=== PATIENT | male | born 1945 | race Caucasian/White ===

== ENCOUNTER 2017-12-19 15:00 | Outpatient (CLI) | payer MEDICARE, BC | END 2017-12-19 15:01 | disposition home or self-care (01) | LOC: BICRAD 15:00 | PROVIDERS: ATTEND Internal Medicine | DX: J45.909 Unspecified asthma, uncomplicated (principal); J32.9 Chronic sinusitis, unspecified; I70.0 Atherosclerosis of aorta | CPT/HCPCS: 70220; 71046 ==

== ENCOUNTER 2018-10-15 13:34 | Outpatient (CLI) | payer MEDICARE, BC ==
--- NOTE | 2018-10-15 16:10 | ULT ---
ABDOMEN ULTRASOUND: HISTORY: Pain. COMPARISON: None. TECHNIQUE: Utilizing a Multi-Hertz transducer, sonographic imaging of the abdomen is performed in the longitudin al and transverse planes. FINDINGS: The visualized aorta has a normal appearance. The head and proximal body of the pancreas has a jackie l echotexture. Suboptimal evaluation of the inferior vena cava. The hepatic parenchyma has a normal course and echotexture, which may be due to hepatic steatosis or hepatocellular disease. Limited evaluation for hepatic masses and intrahepatic biliary dilatation. The main portal vein is patent. Appropriate directional flow. No sonographic evidence of cholelithi asis. No gallbladder wall thickening or pericholecystic fluid. Negative Soto sign. Common bile duct diameter is 0.5 cm. Bilaterally, no hydronephrosis. The right kidney measures 5.4 x 5.4 x 11.2 cm. The left kidney carrie ures 10.7 x 5.7 x 5.5 cm. There are nonspecific echogenic foci in the left and right renal cortex. The spleen has normal echotexture with nonspecific echogenic foci. Maximum splenic dimension is 11 c m. IMPRESSION: 1. Echogenic foci in the kidneys, which may represent nonobstructing parenchymal calcifications. 2. No evidence of hydronephrosis. 3. No sonographic evidence of cholelithiasis or cholecystitis. 4. Possible hepatic steatosis versus hepatocellular disease. Further evaluation with abdomen CT, utilizing liver mass protocol, versus abdomen MRI, if clinically warranted. POS: [facility]
== END 2018-10-15 13:35 | disposition home or self-care (01) ==
LOC: BICULT 13:34
PROVIDERS: ATTEND Internal Medicine
DX: R10.9 Unspecified abdominal pain (principal)
CPT/HCPCS: 76700

== ENCOUNTER 2018-10-30 10:05 | Outpatient (CLI) | payer MEDICARE, BC ==
--- NOTE | 2018-10-30 10:24 | RAD ---
F2 views of the left hip INDICATION: Left hip pain FINDINGS: There is mixed lucency and sclerosis of the left femoral head suspicious for changes of ost eonecrosis. There is some flattening of the anterosuperior femoral head which may reflect some underl rich collapse. There is moderate degenerative arthrosis of the left hip. IMPRESSION: Mixed lucency and sclerosis of the superior left femoral head with abnormality of the lef t femoral head contour suspicious for osteonecrosis and subcortical collapse of the left femoral head . Follow-up MRI of the left hip may be helpful for additional evaluation. Moderate osteoarthrosis of the left hip.
== END 2018-10-30 10:06 | disposition home or self-care (01) ==
LOC: BICRAD 10:05
PROVIDERS: ATTEND Internal Medicine
DX: M25.552 Pain in left hip (principal); M16.12 Unilateral primary osteoarthritis, left hip; M25.852 Other specified joint disorders, left hip